=== PATIENT | male | born 1980 | race Caucasian/White ===

== ENCOUNTER 2017-06-08 00:24 | Emergency (ER) | payer OTHER, MEDICARE ==
[~2017-06-08] VITALS: Ht 182.9 cm; Wt 82.1 kg
[2017-06-08 00:25] VITALS: BP_SYST 120
--- NOTE | 2017-06-08 00:25 | NUR ---
Patient to [facility] for evaluation. Side rails up. Report given to JAGUAR ANDRE.
--- NOTE | 2017-06-08 00:28 | NUR ---
Pt brought in by in stable condition for medical clearance. Pt has a hx of DM2 and psych. Pt denies any pain or complaints at this time. -sob -chest pain. No acute distress noted at this time, will continue to monitor.
--- NOTE | 2017-06-08 00:40 | NUR ---
ER IN [facility] examining patient.
[2017-06-08 01:01] VITALS: BP_SYST 120
--- NOTE | 2017-06-08 01:01 | NUR ---
Patient given written and verbal discharge instructions and verbalizes understanding. ER MD HOYOS discussed with patient the results and treatment provided. Patient in stable condition. ID arm band removed. NO Rx given. Patient educated on pain management and to follow up with PMD. Pain Scale 0/10. Opportunity for questions provided and answered. Medication side effect fact sheet provided.
== END 2017-06-08 01:01 ==
LOC: SED 00:24
DX: Z02.89 Encounter for other administrative examinations (principal); E11.9 Type 2 diabetes mellitus without complications; Z86.59 Personal history of other mental and behavioral disorders
CPT/HCPCS: 99283